=== PATIENT | female | born 1995 | race Caucasian/White ===

== ENCOUNTER 2020-04-05 07:18 | Emergency (ER) | payer MEDICAID ==
[~2020-04-05] VITALS: Ht 157.5 cm; Wt 54.0 kg
[2020-04-05 07:18] VITALS: BP_SYST 155
--- NOTE | 2020-04-05 07:20 | NUR ---
BROUGHT BACK TO BED #6 AND TRIAGED, REPORT GIVEN TO JM
--- NOTE | 2020-04-05 07:25 | NUR ---
Patient presented to ER C/O abdominal pain. Patient A&Ox4, afebrile, skin pink and wam, pain /10, denies N/V/D. Patient states she has left lower pelvic pain since 399 today. Patient reports Hx ruptured ovarian cyst.
--- NOTE | 2020-04-05 07:29 | NUR ---
ER Dr. Pineda at bedside examining patient.
[2020-04-05] MEDS ORDERED: KETOROLAC TROMETHAMINE 60 MG/2 ML VIAL IM ONE ×2 (08:15→08:41)
--- NOTE | 2020-04-05 08:22 | NUR ---
PT medicated per MD order.
[2020-04-05 08:53] VITALS: BP_SYST 145
--- NOTE | 2020-04-05 08:53 | NUR ---
Patient given written and verbal discharge instructions and verbalizes understanding. ER MD discussed with patient the results and treatment provided. Patient in stable condition. ID arm band removed. Rx of NORCO & MOTRIN given. Patient educated on pain management and to follow up with PMD. Pain Scale 4/10 pt will medicate at home. Opportunity for questions provided and answered. Medication side effect fact sheet provided.
== END 2020-04-05 08:53 | disposition home or self-care (01) ==
LOC: SED 07:18 → EDUNIT# 07:18 → SED 08:53
DX: R10.30 Lower abdominal pain, unspecified (principal)
CPT/HCPCS: 99283; 96372; J1885